=== PATIENT | female | born 1960 | race Asian ===

== ENCOUNTER 2017-04-10 23:01 | Emergency (ER) | payer MEDICAID, OTHER ==
[~2017-04-10] VITALS: Ht 160 cm; Wt 77.3 kg
[~2017-04-10 23:01] MED LIST: NOCURR
[2017-04-11 00:07] LABS: APPEARANCE,URINE CLOUDY (CLEAR); BILIRUBIN,URINE NEGATIVE (NEGATIVE); GLUCOSE, URINE (UA) NEGATIVE (NEGATIVE); KETONES,URINE NEGATIVE (NEGATIVE); LEUKOCYTE ESTERASE ,URINE LARGE (NEGATIVE); NITRATE,URINE POSITIVE (NEGATIVE); OCCULT BLOOD,URINE MODERATE (NEGATIVE); PROTEIN,URINE TRACE (NEGATIVE)
[2017-04-11 00:23] LABS: BACTERIA,URINE Few /HPF (None Seen); RENAL EPITHELIAL CELLS,URINE Few /LPF (None Seen)
[2017-04-11 02:26] VITALS: BP 137/88
== END 2017-04-11 02:28 | disposition home or self-care (01) ==
LOC: EMS 23:02
DX: N39.0 Urinary tract infection, site not specified (principal); Z87.440 Personal history of urinary (tract) infections
CPT/HCPCS: 87086; 99284